=== PATIENT | female | born 1985 | race African-American/Black ===

== ENCOUNTER 2024-05-31 12:29 | Emergency (ER) | payer OTHER ==
[~2024-05-31] VITALS: Ht 170.2 cm; Wt 81.6 kg
[2024-05-31 12:33] VITALS: O2SAT 98
[2024-05-31] MEDS ORDERED: CEPH500T MT (12:55)
[2024-05-31] MEDS ORDERED: IBUP-2029 MT (12:55)
[2024-05-31 13:16] VITALS: BP 130/75; PULSE 78; RESP 18; TEMP 37.05852; O2SAT 98
[2024-05-31] MEDS: TETANUS, DIPHTHERIA, PERTUSSIS VAC/PF 0.5ML (>10YR OLD) IM ONE (13:21)
== END 2024-05-31 13:16 | disposition home or self-care (01) ==
LOC: ER 12:29
DX: I89.1 Lymphangitis (principal)
CPT/HCPCS: 90471; 90715; 99283